=== PATIENT | female | born 1950 | race Asian ===

== ENCOUNTER 2017-12-27 08:11 | Emergency (ER) | payer OTHER ==
[~2017-12-27] VITALS: Ht 161.3 cm; Wt 58.1 kg
--- NOTE | 2017-12-27 08:27 | ED GENERAL ADULT ---
History of Present Illness General Chief Complaint: Dizziness Stated Complaint: DIZZY,VOMITING,UNSTEADY WALK Source: patient Exam Limitations: no limitations Vital Signs & Intake/Output Vital Signs & Intake/Output ED Intake and Output 12/28 0000 12/27 1200 Intake Total Output Total Balance Patient 128 lb Weight Weight Reported by Patient Measurement Method Allergies Coded Allergies: alcohol (Intermediate, HIVES 12/27/17) Reconcile Medications Fluticasone Propionate (Flonase Allergy Relief) 50 MCG/ACTUATION SPRAY.SUSP 1 SPRAY KOFFI BID PRN CONGESTION Meclizine HCl 12.5 MG TABLET 1-2 TAB PO TID PRN vertigo Triage Note: PT TO ED WITH C/O DIZZY AND NAUSEA SINCE YESTERDAY, "I FEEL SEA SICK". FEELS BETTER WHEN LAYING DOWN AFTER ABOUT 10 SECONDS. PT DROVE HERSELF TO ED. Triage Nurses Notes Reviewed? yes Onset: Gradual Duration: day(s): (2) Timing: no prior history Injury Environment: home Severity: mild Severity Numbers: 4 Modifying Factors: Worsens With: other (MOVEMENT OF HEAD). Associated Symptoms: NAUSEA HPI: Patient is a 67-year-old female with history of vitamin D deficiency presenting to the emergency department with chief complaint of dizziness and nausea that started yesterday. She reports the symptoms were very worse yesterday but when she woke up this morning they were persistent so she decided to come in for evaluation. Dizziness is worse with any positional movements of the head. Denies any blurred vision. No double vision. Denies any vomiting. Denies abdominal pain chest pain palpitations or shortness of breath. No history similar symptoms in the past. She was also very concerned because her mother had a history of TIAs. Denies any recent upper respiratory symptoms. No fevers or chills. Denies any urinary symptoms, no change in bowel habits. (Chalo COLLIER,Zoila) Past History Travel History Traveled to [place] past 21 day No Medical History Any Pertinent Medical History? 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 No (Zoila Mendez) Review of Systems Review of Systems Constitutional: Reports: no symptoms. Comments Review of systems: See HPI, All other systems negative. Constitutional, no chills fever or weight loss HEENT: No visual changes no sore throat no congestion Cardiovascular: No chest pain ,palpitation , orthopnea or ankle swelling Skin, no jaundice no rashes Respiratory: No dyspnea cough sputum or hemoptysis GI: No nausea no vomiting : No dysuria No hematuria Muscle skeletal: no back pain, no neck pain, Neurologic: No numbness no confusion NO HEADACHES Psych: No stress anxiety or depression,. Heme/endocrine: No bruising no bleeding no polyuria or polydipsia Immunology: No splenectomy or history of AIDS (Zoila Mendez) Physical Exam Physical Exam General Appearance: well developed/nourished, no apparent distress, alert, awake , comfortable Comments: Well-developed well-nourished person in no acute distress HEENT: Normal EENT exam, extraocular motion intact, no nystagmus. Pupils equally round and reactive to light and accommodation. Nose is atraumatic. External auditory canal clear bilaterally, tympanic membranes are slightly erythematous and bulging bilaterally. Pharynx normal. No swelling or edema. Able to reproduce dizzys with positional changes of the head. Neck: Supple, no lymphadenopathy, normal range of motion without pain or tenderness Back: Nontender Cardiovascular: Regular rate and rhythms no murmurs rubs or gallops, normal JVP Respiratory: Chest nontender. No respiratory distress.breath sounds clear to auscultation bilaterally Abdomen: Soft, nontender nondistended, no appreciable organomegaly. Normal bowel sounds. No ascites, no rebound or guarding. Extremity: No edema, no calf tenderness to palpation, normal and equal pulses. Full range of motion of upper and lower extremities without difficulty or pain. Gas Torch Solderer strength is equal and symmetric bilaterally. Muscular strength is 5 out of 5 in upper and lower extremities. Neuro: Alert oriented x3, motor sensory normal, cranial nerves II through XII grossly intact. Patellar reflexes are 2+ bilaterally. Negative Romberg. Cerebellar testing is unremarkable. Skin: No appreciable rash on exposed skin, skin is warm and dry. Psych: Mood and affect is normal, memory and judgment is normal. Core Measures ACS in differential dx? Yes CVA/TIA Diagnosis: No Sepsis Present: No Sepsis Focused Exam Completed? No (Zoila Mendez) Progress Differential Diagnoses I considered the following diagnoses in my evaluation of the patient: Vertigo, viral labyrinthitis, sinusitis, TIA, CVA, and her ear infection Plan of Care: Orders Procedure Date/time Status MISTAKE 12/27 827 Active TROPONIN LEVEL 12/27 827 Complete PARTIAL THROMBOPLASTIN TIME 12/27 827 Complete PROTHROMBIN TIME 12/27 827 Complete COMPREHENSIVE METABOLIC PANEL 12/27 827 Complete CBC WITHOUT DIFFERENTIAL 12/27 827 Complete EKG 12/27 827 Active Current Medications Sig/Jerrica Start time Last Medication Dose Stop Time Status Admin Sodium Chloride 1,000 ML BOLUS ONE 12/27 0900 AC 12/27 (Normal Saline 0.9%) 12/27 1059 0918 Laboratory Tests 12/27/17 0855: Anion Gap 11, Estimated GFR > 60, BUN/Creatinine Ratio 18.0, Glucose 113 H, Calcium 10.1, Total Bilirubin 0.8, AST 20, ALT 28, Alkaline Phosphatase 86, Troponin I < 0.01, Total Protein 7.1, Albumin 4.3, Globulin 2.8, Albumin/ Globulin Ratio 1.5, PT 11.5, INR 1.10, APTT 30, CBC w Diff NO MAN DIFF REQ, RBC 4.98, MCV 87.7, MCH 29.9, MCHC 34.1, RDW 13.6, MPV 8.7, Gran % 71.7, Lymphocytes % 22.9, Monocytes % 4.8, Eosinophils % 0.3, Basophils % 0.3, Absolute Granulocytes 4.2, Absolute Lymphocytes 1.3, Absolute Monocytes 0.3, Absolute Eosinophils 0, Absolute Basophils 0 \\ 12/27/2017 10:27:27 AM patient feeling much improved after IV hydration, meclizine and scopolamine patch. Patient already has dizziness. Patient informed of all imaging results and laboratory results. Likely vertigo. Patient does have inflamed sinuses noted on CAT scan. Patient will be started on Flonase, meclizine, she'll keep scopolamine patch on. Patient is nontoxic. Walks with steady gait. D/W DR VELASCO AND SHE AGREES WITH PLAN. Diagnostic Imaging: Viewed by Me: CT Scan. Discussed w/RAD: CT Scan. Initial ED EKG: SINUS RHYTHM 71 BPM, BORDERLINE t ABNORMALITIES DIFFUSELY (Zoila Mendez) Departure Departure Time of Disposition: 1024 Disposition: HOME OR SELF CARE Condition: Stable Clinical Impression Primary Impression: Vertigo Referrals: Ksenia Duran MD (PCP/Family) Additional Instructions: Follow-up with your primary care physician in the next 5-7 days. Increase fluids. Take meclizine as prescribed elbow with vertigo like symptoms. Use Flonase as directed to help with sinus inflammation. Return for worsening symptoms or concerns. You can keep your scopolamine patch on for 72 hours and then remove it. Departure Forms: Customer Survey General Discharge Information Prescriptions: Current Visit Scripts Meclizine HCl 1-2 TAB PO TID PRN vertigo #30 TAB Fluticasone Propionate (Flonase Allergy Relief) 1 SPRAY KOFFI BID PRN CONGESTION #1 UNIT (Zoila Mendez) PA/CREDIT CONTROL CLERK Co-Sign Statement Statement: ED Attending supervision documentation- [] I saw and evaluated the patient. I have also reviewed all the pertinent lab results and diagnostic results. I agree with the findings and the plan of care as documented in the PA's/CREDIT CONTROL CLERK's documentation. [X] I have reviewed the ED Record and agree with the PA's/CREDIT CONTROL CLERK's documentation. [] Additions or exceptions (if any) to the PAs/CREDIT CONTROL CLERK's note and plan are summarized below: [] (Hiro NIELSEN,Pamela) Critical Care Note Critical Care Note Critical Care Time: non-applicable (Zoila Mendez)
[2017-12-27 09:17] VITALS: BP 108/68
[2017-12-27 09:19] LABS: ABSOLUTE BASOPHIL COUNT 0 /CUMM (0.0-0.2); ABSOLUTE EOSINOPHIL COUNT 0 /CUMM (0.0-0.7); ABSOLUTE GRANULOCYTE CT 4.2 /CUMM (1.4-6.5); ABSOLUTE LYMPH COUNT 1.3 /CUMM (1.2-3.4); ABSOLUTE MONOCYTE COUNT 0.3 /CUMM (0.10-0.60); BASOPHIL % 0.3 % (0.0-2.0); EOSINOPHIL % 0.3 % (0-5); GRANULOCYTE % 71.7 % (42.2-75.2); HEMATOCRIT 43.7 % (37-47); MEAN CORPUSCULAR HGB 29.9 PG (27.0-31.0); MEAN CORPUSCULAR HGB CONC 34.1 G/DL (33.0-37.0); MEAN CORPUSCULAR VOLUME 87.7 FL (81.0-99.0); MEAN PLATELET VOLUME 8.7 FL (7.4-10.4); PLATELET COUNT 297 /CUMM (130-400); RBC DISTRIBUTION WIDTH 13.6 % (11.5-14.5); RED BLOOD CELL CT 4.98 /CUMM (4.20-5.40); WHITE BLOOD CELL COUNT 5.9 /CUMM (4.8-10.8)
--- NOTE | 2017-12-27 09:25 | CT SCAN REPORT ---
EXAMINATION: CT HEAD WITHOUT CONTRAST CLINICAL INFORMATION: Dizziness, unsteadiness. COMPARISON: None TECHNIQUE: Contiguous axial imaging was performed from the skull base to vertex without intravenous administration of contrast. DLP: 696 mGy-cm FINDINGS: There is no evidence of acute intracranial hemorrhage or territorial infarction. No abnormal mass effect or midline shift is seen. Vazquez to white matter differentiation is well preserved. No extra-axial fluid collections are identified. The ventricles are normal in size. There is no abnormal attenuation within the brain parenchyma. The ventricles, sulci, and extra-axial series of spaces appear normal in caliber and configuration. Attenuation within the brain is fairly well-maintained. No acute osseous abnormalities. There is a moderate fluid level in the left sphenoid air cell and a retention cyst in a right-sided ethmoid air cell. The nasopharynx is symmetric. The mastoid air cells and middle ear cavities are clear. The temporomandibular joints articulate normally. No acute soft tissue abnormalities. IMPRESSION: No acute intracranial pathology. Moderate fluid level in the left sphenoid air cell.
[2017-12-27 09:43] LABS: PT 11.5 SEC (9.4-12.5); PTT 30 SEC (25-37)
[2017-12-27] MEDS ORDERED: FLONASE ALLERG9.9 ML NAS (10:24)
[2017-12-27] MEDS ORDERED: MECLIZINE HCL12.5 M1 PO (10:24)
== END 2017-12-27 10:47 ==
LOC: ERH 08:11
PROVIDERS: Physician Assistant
DX: R42 Dizziness and giddiness (principal); R11.0 Nausea
CPT/HCPCS: 93005; 93010; 96374; J2405